=== PATIENT | female | born 1955 | race Caucasian/White ===

== ENCOUNTER → 2019-03-29 | Outpatient (CLI) | payer OTHER, MEDICAID ==
[~2019-03-29] MED LIST: AMITRIPTYLINE H10 M1 PO; AMITRIPTYLINE PO; ASPIRIN81 M2 PO; CALCIUM 600 +1 EAC1 PO; CLARITIN10 MG PO; COD LIVER OIL1 EAC3 PO; COLACE100 MG PO; DITROPAN XL5 M1 PO; FENTANYL PA50 MCG/HR TRANSDERM; FLONASE 0.05%50 MCG NASAL; HYDROCODON-ACE1 EAC5 PO; HYDROCODONE-IB1 EAC3 PO; IPRATROPIUM BRO15 ML NASAL; MAGNESIUM CITR125 MG PO; MULTIVITAMINS PO; MYRBETRIQ50 MG PO; NEURONTIN 300300 M1 PO; NYSTATIN 100,0015 G1 TP; OCUVITE TABLET1 EAC1 PO; OMEGA DHA92 MG PO; PRILOSEC 20 MG20 MG PO; PROZAC 10 MG CA10 MG PO; SINGULAIR 10 MG10 M1 PO; SYMBICORT160 MCG/4. INH; SYNTHROID125 MC1 PO; SYNTHROID25 MCG PO; VENTOLIN HFA 1818 GM INH; VITAMIN C1000 MG PO; VITAMIN D1000 UNI2 PO; VITAMIN E400 UNI7 PO; XANAX XR2 MG PO
[2019-03-29 14:28] LABS: HEMATOCRIT 39.6 % (37.0-47.0); HEMOGLOBIN 13.2 gm/dL (12.0-15.0); MCH 27.2 pg (26.0-34.0); MCHC 33.5 g/dL (28.0-37.0); MCV 81.2 fL (80.0-100.0); MPV 8.5 fl. (7.2-11.1); RBC 4.87 mil/uL (4.20-5.00); RDW-CV 14.2 % (10.5-14.5)
[2019-03-29 14:36] LABS: CALCIUM 9.5 mg/dL (8.5-10.1); POTASSIUM 3.8 mmol/L (3.5-5.1)
== END ==
LOC: M.LAB 13:56
PROVIDERS: Podiatrist
DX: Z01.812 Encounter for preprocedural laboratory examination (principal); M20.41 Other hammer toe(s) (acquired), right foot

== ENCOUNTER → 2020-04-29 | Outpatient (CLI) | payer OTHER, MEDICAID ==
[~2020-04-29] MED LIST changes: +BIOTIN1000 MCG PO; +MAGNESIUM500 MG PO; +NORCO 7.5-3251 EACH PO; +OXYBUTYNIN 5 MG5 M2 PO; +PREDNISONE 5 MG5 M1 PO
[2020-04-29 10:23] LABS: ABSOLUTE EOSINOPHILS 0.1 thou/uL (0.0-0.7); ABSOLUTE LYMPHOCYTES 2.2 thou/uL (0.8-5.3); ABSOLUTE MONOCYTES 0.5 thou/uL (0.0-1.2); BASOPHILS 0.8 %; EOSINOPHILS 1.9 %; HEMATOCRIT 38.4 % (37.0-47.0); HEMOGLOBIN 12.9 gm/dL (12.0-15.0); LYMPHOCYTES 37.1 %; MCH 27.7 pg (26.0-34.0); MCHC 33.6 g/dL (28.0-37.0); MCV 82.5 fL (80.0-100.0); MONOCYTES 8.7 %; MPV 8.5 fl. (7.2-11.1); NUCLEATED RBCS 0 /100WBC; PLATELET COUNT* 273 thou/uL (150-400); POLYS 51.5 %; RBC 4.65 mil/uL (4.20-5.00); RDW-CV 14.1 % (10.5-14.5); WBC 5.9 thou/uL (4.0-11.0)
[2020-04-29 10:32] LABS: APTT 23.8 Seconds (25.0-31.3); INR 0.9; PROTIME 9.7 Seconds (9.20-11.50)
[2020-04-29 10:36] LABS: ALBUMIN 3.5 g/dL (3.4-5.0); CALCIUM 8.6 mg/dL (8.5-10.1); CREATININE 0.9 mg/dL (0.6-1.3); POTASSIUM 3.7 mmol/L (3.5-5.1); TOTAL BILIRUBIN 0.7 mg/dL (<0.1-1.0); TOTAL PROTEIN 7.6 g/dL (6.4-8.2)
[2020-04-29 12:06] LABS: ESR (SEDRATE) 23 mm/hr (0-30)
[2020-04-30 02:06] LABS: GLYCOHEMOGLOBIN (HGB A1C) 5.3 % (4.8-5.6)
== END ==
LOC: M.LAB 09:44
PROVIDERS: ATTEND Orthopaedic Surgery
DX: Z01.812 Encounter for preprocedural laboratory examination (principal); Z20.828 Contact with and (suspected) exposure to other viral communicable diseases; M17.11 Unilateral primary osteoarthritis, right knee

== ENCOUNTER → 2020-07-08 | Outpatient (CLI) | payer OTHER, MEDICAID ==
[2020-07-08 11:04] LABS: ABSOLUTE BASOPHILS 0.1 thou/uL (0.0-0.2); ABSOLUTE EOSINOPHILS 0.1 thou/uL (0.0-0.7); ABSOLUTE LYMPHOCYTES 1.9 thou/uL (0.8-5.3); ABSOLUTE MONOCYTES 0.5 thou/uL (0.0-1.2); ABSOLUTE NEUTROPHILS 4.9 thou/uL (1.6-8.1); BASOPHILS 1.2 %; EOSINOPHILS 1.5 %; HEMATOCRIT 39.9 % (37.0-47.0); HEMOGLOBIN 13.2 gm/dL (12.0-15.0); LYMPHOCYTES 25.6 %; MCV 81.6 fL (80.0-100.0); MONOCYTES 6.3 %; NUCLEATED RBCS 0 /100WBC; PLATELET COUNT* 262 thou/uL (150-400); POLYS 65.4 %; RBC 4.89 mil/uL (4.20-5.00); RDW-CV 14.3 % (10.5-14.5); WBC 7.5 thou/uL (4.0-11.0)
--- NOTE | 2020-07-08 11:16 | EKG ---
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
[2020-07-08 11:24] LABS: APTT 23.1 Seconds (25.0-31.3); INR 0.9; PROTIME 9.7 Seconds (9.20-11.50)
[2020-07-08 11:26] LABS: ALBUMIN 3.4 g/dL (3.4-5.0); TOTAL BILIRUBIN 0.6 mg/dL (<0.1-1.0); TOTAL PROTEIN 7.9 g/dL (6.4-8.2)
[2020-07-08 12:12] LABS: ESR (SEDRATE) 27 mm/hr (0-30)
[2020-07-09 02:06] LABS: GLYCOHEMOGLOBIN (HGB A1C) 5.5 % (4.8-5.6)
== END ==
LOC: M.LAB 08:51
PROVIDERS: ATTEND Orthopaedic Surgery
DX: Z01.812 Encounter for preprocedural laboratory examination (principal); Z20.828 Contact with and (suspected) exposure to other viral communicable diseases; M17.11 Unilateral primary osteoarthritis, right knee; I49.9 Cardiac arrhythmia, unspecified

== ENCOUNTER 2020-07-14 11:33 | Inpatient (IN) | payer OTHER, MEDICAID ==
[~2020-07-14] VITALS: Ht 170.2 cm; Wt 113.4 kg
[~2020-07-14 11:33] MED LIST changes: +OMEPRAZOLE 20 M20 M1 PO; -PRILOSEC 20 MG20 MG PO
[2020-07-14] MEDS ORDERED: NORVASC5 M1 PO (12:10)
[2020-07-14 12:26] LABS: ABSOLUTE BASOPHILS 0.1 thou/uL (0.0-0.2); ABSOLUTE LYMPHOCYTES 1.4 thou/uL (0.8-5.3); ABSOLUTE MONOCYTES 0.5 thou/uL (0.0-1.2); ABSOLUTE NEUTROPHILS 6.3 thou/uL (1.6-8.1); BASOPHILS 0.7 %; HEMATOCRIT 38.6 % (37.0-47.0); LYMPHOCYTES 16.4 %; MCH 27.3 pg (26.0-34.0); MCHC 33.6 g/dL (28.0-37.0); MCV 81.1 fL (80.0-100.0); MONOCYTES 6.4 %; MPV 7.9 fl. (7.2-11.1); NUCLEATED RBCS 0 /100WBC; PLATELET COUNT* 295 thou/uL (150-400); POLYS 76.5 %; RBC 4.76 mil/uL (4.20-5.00); RDW-CV 14.3 % (10.5-14.5); WBC 8.2 thou/uL (4.0-11.0)
[2020-07-14 12:28] LABS: URINE BILIRUBIN NEGATIVE (Negative); URINE BLOOD NEGATIVE (Negative); URINE CLARITY CLEAR; URINE COLOR YELLOW; URINE GLUCOSE-RANDOM NEGATIVE (Negative); URINE KETONES NEGATIVE (Negative); URINE LEUKOCYTES TRACE (Negative); URINE NITRITE NEGATIVE (Negative); URINE PROTEIN NEGATIVE (Negative); URINE UROBILINOGEN 0.2 E.U./dl (0.2-1.0)
[2020-07-14 12:48] LABS: BACTERIA 1-9 Few /HPF (None Seen); CASTS None Seen /LPF (None Seen); CRYSTALS None Seen /LPF (None Seen); MUCUS 4-6 Moderate strn/LPF (None Seen); SQUAMOUS 4-10 Moderate /LPF (0-3); URINE RBC 0-2 Rare /HPF (0-2); URINE WBC 6-15 Few /HPF (0-5)
[2020-07-14 14:20] VITALS: BP 134/84
[2020-07-14 19:55] VITALS: BP 134/72
[2020-07-15 00:15] VITALS: BP 112/62
[2020-07-15 04:16] VITALS: BP 115/69
[2020-07-15 05:11] LABS: HEMATOCRIT 35.5 % (37.0-47.0); HEMOGLOBIN 11.7 gm/dL (12.0-15.0)
[2020-07-15 07:25] VITALS: BP 115/72
[2020-07-15 12:00] VITALS: BP 126/68
[2020-07-15 16:00] VITALS: BP 140/68
[2020-07-15 21:13] VITALS: BP 139/76
[2020-07-16 01:03] VITALS: BP 131/70
[2020-07-16 04:53] LABS: HEMATOCRIT 35.6 % (37.0-47.0); HEMOGLOBIN 11.7 gm/dL (12.0-15.0)
--- NOTE | 2020-07-16 06:50 | OP ---
[address] [address] OPERATIVE REPORT Name: JOSE MILLIGAN Room: [address] M.R.#: [id number] Admission: 07/15/20 Attend Phys: Myesha Perez Discharge: Date of : 57 Report #: [id number] THIS REPORT FOR: //name// cc: Edwige Zuleta MD, Pamela MD ~ CC: Lucien Zuleta DICTATED BY: Maikel Salas DO DATE OF SERVICE: 07/14/2020 PREOPERATIVE DIAGNOSIS: Right knee degenerative joint disease. POSTOPERATIVE DIAGNOSIS: Right knee degenerative joint disease. PROCEDURE PERFORMED: Right total knee arthroplasty utilizing Vick Persona total knee system with following components: 1. A size 8 narrow femoral component. 2. A size F tibial component. 3. A size 10 mm medial congruent ultra high molecular weight polyethylene component. 4. A 32 mm patella. SURGEON: Lucien Lr DO SERVICE LOSS CONTROL CONSULTANT: Maikel Salas DO and Mic Beavers DO ANESTHESIA: Spinal. ESTIMATED BLOOD LOSS: 100 mL. COMPLICATIONS: None. COMPLICATIONS: None. TOURNIQUET: 52 minutes at 300 mmHg. INDICATIONS FOR PROCEDURE: This is a pleasant 65-year-old female who was seen and examined in the outpatient orthopedic clinic with regards to her right knee pain. Radiographs demonstrate advanced degenerative joint disease with joint space narrowing, subchondral sclerosis and osteophytic lipping. She has tried and failed conservative treatments including activity modification, anti-inflammatories and intra-articular steroid injections. Treatment options were discussed in detail with her. Right total knee arthroplasty was discussed including the risks, benefits, alternatives and complications, and she wished to [address] [address] OPERATIVE REPORT Name: JOSE MILLIGAN Room: [address] M.R.#: [id number] Admission: 07/15/20 Attend Phys: Myesha Perez Discharge: Date of : 57 Report #: [id number]. DESCRIPTION OF PROCEDURE: The patient was seen and examined in the preoperative holding area. The correct operative extremity was marked. Written consent was obtained for the procedure. The patient was transferred to the operating room and placed supine on the operating table. She was given the benefit of general anesthesia. A well-padded tourniquet was placed on the right thigh. Right lower extremity was prepped and draped in usual sterile fashion. Timeout was performed to verify the correct patient, procedure and operative extremity and all were in agreement. Next, the tourniquet was inflated to 300 mmHg. The procedure began with a standard midline incision. Sharp dissection was carried down to the level of the joint capsule. A medial parapatellar arthrotomy was then performed. Medial periosteal sleeve was developed off the proximal tibia. Anterior horns of medial and lateral menisci were excised. The patella was everted. The patellar fat pad was excised. Appropriate retractors were placed. The femoral canal was opened with the drill and the intramedullary femoral guide was placed and pinned into position with 5 degrees of valgus measuring a total of 12 mm cut off the distal femur. This was cut in the standard fashion. Attention was then turned to the tibia. The extramedullary tibial guide was placed and pinned into position measuring 10 mm cut off the high lateral side. This cut was performed in standard fashion. All excess bone was removed. The knee was taken into extension and a size 10 spacer block was inserted, which was noted to be well balanced and have full extension. The knee was then once again taken into flexion. Appropriate retractors were placed. The AP sizer was used to size the femur. This was drilled into 3 degrees of external rotation in relation to the posterior condylar axis. This was measured to a size 8. The size 8, 4-in-1 cutting block was pinned into position and the anterior, posterior and chamfer cuts were then performed in the standard fashion. The cutting block was removed and all excess bone was removed. The remainder of the medial and lateral menisci were then excised. The tibia was then sized and then the size F trial was noted to have most appropriate fit. This was pinned into position. The trial femur was then inserted. A 10 mm trial poly was inserted and again the knee was noted to have full range of motion with excellent stability. The patella was then cut in a freehand fashion measured to size 32. The trial patellar button was inserted and was noted to track well. The trial patella and femur were then removed. The tibia was drilled and punched in the standard fashion. Trial tibia was removed. The knee was then thoroughly irrigated with pulsatile lavage. Cement was mixed on the back table. The final components were then cemented into position in standard fashion. All excess cement was removed. The knee was held into extension with a size 12 spacer to allow the cement to harden. After allowing the cement to harden, the knee was once again thoroughly irrigated. The final size 10 mm spacer was inserted. This was noted to have excellent stability throughout range of motion. The knee was once again thoroughly irrigated. The tourniquet was deflated. The capsule was closed with #1 Vicryl in interrupted [id number] fashion. A running Stratafix suture was also used to reinforce the capsule. Next, 2-0 Vicryl was [address] [address] OPERATIVE REPORT Name: JOSE MILLIGAN Room: [address] M.R.#: [id number] Admission: 07/15/20 Attend Phys: Myesha Perez Discharge: Date of : 57 Report #: [id number] used subcutaneously followed by running 3-0 Stratafix suture. Dermabond skin glue was applied. Sterile dressing was applied. The patient was then awakened from anesthesia and transferred to PACU in stable condition. The patient tolerated the procedure well. There were no complications. <ELECTRONICALLY SIGNED> By: Dakota Sanchez DO 07/16/20 0650 1604 [id number] Lr DO /tod
[2020-07-16 08:00] VITALS: BP 128/68; BP 160/75
[2020-07-16] MEDS ORDERED: ELIQUIS5 MG PO (11:37)
[2020-07-16 11:48] VITALS: BP 128/68
[2020-07-16 16:40] VITALS: BP 132/72
[2020-07-16 21:00] VITALS: BP 148/94
[2020-07-16 21:20] VITALS: BP 149/69
[2020-07-17] VITALS: BP 133/74
[2020-07-17 04:00] VITALS: BP 133/69
[2020-07-17 08:45] VITALS: BP 138/72
[2020-07-17 11:50] VITALS: BP 128/68
[2020-07-17 14:51] VITALS: BP 128/68
[2020-07-17] MEDS ORDERED: NORCO 7.5-3251 EACH PO (16:28)
[2020-07-17 17:36] VITALS: BP 128/68
== END 2020-07-17 17:20 | disposition home health service (06) | DRG 470 ==
LOC: M.3W 11:33 → M.TBA 11:33 → M.PRE 15:45 → M.3W 19:52
PROVIDERS: Orthopaedic Surgery; ADMIT Internal Medicine; ATTEND Internal Medicine
PROC: 0SRC0J9 Replacement of Right Knee Joint with Synthetic Substitute, Cemented, Open Approach (ICD-10-PCS; principal; 2020-07-14)
DX: M17.11 Unilateral primary osteoarthritis, right knee (principal); D62 Acute posthemorrhagic anemia; E03.9 Hypothyroidism, unspecified; J44.9 Chronic obstructive pulmonary disease, unspecified; Z87.891 Personal history of nicotine dependence; Z88.8 Allergy status to other drugs, medicaments and biological substances; Z90.710 Acquired absence of both cervix and uterus; Z79.899 Other long term (current) drug therapy